=== PATIENT | female | born 1990 | race Hispanic/Latino ===

== ENCOUNTER 2017-12-04 14:05 | Observation (INO) | payer MEDICAID ==
[~2017-12-04] VITALS: Ht 162.6 cm; Wt 112.0 kg
[~2017-12-04 14:05] MED LIST: GLYB2.5 PO; IBUP-2070 PO; IRON-10 PO; PNV91TAB3 PO
[2017-12-04 15:20] VITALS: BP 96/65
== END 2017-12-04 15:50 | disposition home or self-care (01) ==
LOC: EDH 14:05 → LDH 14:24
PROVIDERS: ADMIT Obstetrics & Gynecology; ATTEND Obstetrics & Gynecology
DX: O42.92 Full-term premature rupture of membranes, unspecified as to length of time between rupture and onset of labor (principal); Z3A.38 38 weeks gestation of pregnancy
CPT/HCPCS: 99285; G0378

== ENCOUNTER 2017-12-07 19:50 | Inpatient (IN) | payer MEDICAID ==
[~2017-12-07] VITALS: Ht 162.6 cm; Wt 113.4 kg
[2017-12-07 20:34] LABS: APPEARANCE,URINE Cloudy (CLEAR); BILIRUBIN,URINE Negative (NEGATIVE); COLOR,URINE Yellow (YELLOW); GLUCOSE, URINE (UA) Negative (NEGATIVE); KETONES,URINE Negative (NEGATIVE); LEUKOCYTE ESTERASE ,URINE Moderate (NEGATIVE); NITRATE,URINE Negative (NEGATIVE); OCCULT BLOOD,URINE Negative (NEGATIVE); PH,URINE 6.5 (5.0-8.0); PROTEIN,URINE Negative (NEGATIVE)
[2017-12-07] MEDS: LACTATED RINGERS 1000ML 1,000 ML IV PRN (20:50)
[2017-12-07 21:08] LABS: HEMATOCRIT 32.9 % (36-48); MEAN CORPUSCULAR HEMOGLOBIN 27.3 pg (27.0-33.0); MEAN CORPUSCULAR HGB CONC 34.8 g/dL (32.0-36.0); MEAN CORPUSCULAR VOLUME 78.5 fL (79-99); NUCLEATED RED BLOOD CELLS 0.1 % (0.0-0.19); PLATELET COUNT (AUTO) 283 K/uL (130-400); RED BLOOD CELL COUNT(AUTO) 4.19 MIL/uL (4.00-5.50); RED CELL DISTRIBUTION WIDTH 18.5 % (11.0-15.5); WHITE BLOOD COUNT (AUTO) 13.8 K/uL (4.8-10.8)
[2017-12-07 21:19] LABS: WBC,URINE 26-50 /HPF (0-1)
[2017-12-07 21:20] LABS: BACTERIA,URINE Few /HPF (None Seen); SQUAMOUS EPITHELIAL CELL,UR Moderate /LPF (0-2)
[2017-12-07 21:22] LABS: MUCUS,URINE Rare LPF (None Seen)
[2017-12-08] MEDS: LACTATED RINGERS 1000ML 1,000 ML IV PRN (00:32)
[2017-12-08] MEDS ORDERED: OXYTOCIN 10 USP UNITS/ML 20 UNIT in LACTATED RINGERS 1000ML 1,000 ML IV SCH ×2 (03:00→06:30)
[2017-12-08] MEDS ORDERED: OXYTOCIN 10 USP UNITS/ML ONE ×2 (05:49→13:13)
[2017-12-08] MEDS ORDERED: LACTATED RINGERS 1000ML 1,000 ML IV ONE (05:49)
[2017-12-08] MEDS ORDERED: PROMETHAZINE HCL 25 MG/ML 1ML AMPULE IM ONE (08:39)
[2017-12-08] MEDS ORDERED: MEPERIDINE-PF 50 MG/ML SYG ONE (08:40)
[2017-12-08] MEDS ORDERED: MEPERIDINE-PF 50 MG/ML SYG IVP SCH (08:45)
[2017-12-08] MEDS ORDERED: PROMETHAZINE HCL 25 MG/ML 1ML AMPULE IM SCH ×2 (08:45→11:00)
[2017-12-08] MEDS ORDERED: MEPERIDINE-PF 50 MG/ML SYG IVP ONE (11:00)
[2017-12-08] MEDS ORDERED: IBUPROFEN 600 MG TABLET ONE (13:13)
[2017-12-08] MEDS ORDERED: BENZOCAINE/LANOLIN/ALOE VERA 60 ML AEROSOL TP PRN (13:30)
[2017-12-08] MEDS ORDERED: WITCH HAZEL 1 PAD TP PRN (13:30)
[2017-12-08] MEDS ORDERED: ACETAMINOPHEN 325 MG TAB PO PRN (13:30)
[2017-12-08] MEDS ORDERED: LANOLIN 30GM OINTMENT TP PRN (13:30)
[2017-12-08] MEDS ORDERED: MEASLES/MUMPS/RUBELLA VACCINE, LIVE 0.5 ML/VIAL SQ PRN (13:30)
[2017-12-08] MEDS ORDERED: DIPH,PERTUSS(ACELL),TET VAC/PF 0.5 ML VIAL IM PRN (13:30)
[2017-12-08] MEDS ORDERED: IBUPROFEN 600 MG TABLET PO PRN (13:30)
[2017-12-08 14:15] VITALS: BP 133/70
[2017-12-08] MEDS ORDERED: FERR-82 PO (14:56)
[2017-12-08 15:24] VITALS: BP 126/62
[2017-12-08] MEDS ORDERED: FLU VACC QS2017-18 36MOS UP/PF 60 MCG/0.5 ML ML IM ONE ×2 (15:45→17:08)
[2017-12-08 19:19] VITALS: BP 127/58
[2017-12-08] MEDS: DOCUSATE SODIUM 100 MG CAP PO SCH (20:52)
[2017-12-08 23:00] VITALS: BP 134/63
[2017-12-09 03:29] VITALS: BP 121/63
[2017-12-09 05:42] LABS: HEMATOCRIT 30.1 % (36-48); MEAN CORPUSCULAR HEMOGLOBIN 26.3 pg (27.0-33.0); MEAN CORPUSCULAR HGB CONC 33.1 g/dL (32.0-36.0); MEAN CORPUSCULAR VOLUME 79.3 fL (79-99); PLATELET COUNT (AUTO) 240 K/uL (130-400); RED BLOOD CELL COUNT(AUTO) 3.79 MIL/uL (4.00-5.50); RED CELL DISTRIBUTION WIDTH 18.7 % (11.0-15.5)
[2017-12-09 07:25] VITALS: BP 111/65
[2017-12-09 07:30] LABS: HEPATITIS Bs ANTIGEN SCREEN P Negative (Negative)
[2017-12-09] MEDS: DOCUSATE SODIUM 100 MG CAP PO SCH (08:30)
[2017-12-09 11:20] VITALS: BP 115/65
== END 2017-12-09 12:45 | disposition home or self-care (01) | DRG 560 ==
LOC: LDH 19:50 → WSH 12-08 14:15
PROVIDERS: ADMIT Obstetrics & Gynecology; ATTEND Obstetrics & Gynecology
PROC: 10E0XZZ Delivery of Products of Conception, External Approach (ICD-10-PCS; principal; 2017-12-08)
PROC: 3E0234Z Introduction of Serum, Toxoid and Vaccine into Muscle, Percutaneous Approach (ICD-10-PCS; 2017-12-08)
PROC: 3E0234Z Introduction of Serum, Toxoid and Vaccine into Muscle, Percutaneous Approach (ICD-10-PCS; 2017-12-08)
PROC: 3E0134Z Introduction of Serum, Toxoid and Vaccine into Subcutaneous Tissue, Percutaneous Approach (ICD-10-PCS; 2017-12-08)
PROC: 10907ZC Drainage of Amniotic Fluid, Therapeutic from Products of Conception, Via Natural or Artificial Opening (ICD-10-PCS; 2017-12-08)
DX: O24.429 Gestational diabetes mellitus in childbirth, unspecified control (principal); Z23 Encounter for immunization; Z37.0 Single live birth; Z3A.39 39 weeks gestation of pregnancy
CPT/HCPCS: 36415; 81001; 85027; 86592; 86850; 86900; 86901; 87340; 90715; A4351; A4606; J2175; J2550; J2590; J7120; Q2038

== ENCOUNTER 2017-12-18 18:15 | Observation (INO) | payer MEDICAID ==
[~2017-12-18] VITALS: Ht 162.6 cm; Wt 105.2 kg
[~2017-12-18 18:15] MED LIST changes: +FERR-82 PO
[2017-12-18] MEDS ORDERED: SODIUM CHLORIDE 0.9% 1000ML 1,000 ML IV ONE (19:33)
[2017-12-18] MEDS ORDERED: ONDANSETRON HCL 4 MG/2 ML VIAL ONE (19:33)
[2017-12-18] MEDS ORDERED: KETOROLAC TROMETHAMINE 30MG/ML ONE (19:33)
[2017-12-18 19:35] LABS: BASOPHILS % (AUTO) 0.5 % (0.0-5.0); EOSINOPHILS % (AUTO) 1.8 % (0.0-8.0); HEMATOCRIT 32.7 % (36-48); LYMPHOCYTES % (AUTO) 13.8 % (21.0-51.0); MEAN CORPUSCULAR VOLUME 78.7 fL (79-99); MONOCYTES % (AUTO) 4.4 % (3.0-13.0); NEUTROPHILS % (AUTO) 79.5 % (40.0-77.0); PLATELET COUNT (AUTO) 316 K/uL (130-400); RED BLOOD CELL COUNT(AUTO) 4.15 MIL/uL (4.00-5.50); RED CELL DISTRIBUTION WIDTH 17.5 % (11.0-15.5); WHITE BLOOD COUNT (AUTO) 16.8 K/uL (4.8-10.8)
[2017-12-18 19:45] LABS: CREATININE 0.7 mg/dL (0.5-1.5); POTASSIUM 3.6 mmol/L (3.5-5.1)
[2017-12-18 19:45] LABS: APPEARANCE,URINE Clear (CLEAR); BILIRUBIN,URINE Negative (NEGATIVE); COLOR,URINE Yellow (YELLOW); GLUCOSE, URINE (UA) Negative (NEGATIVE); KETONES,URINE Negative (NEGATIVE); LEUKOCYTE ESTERASE ,URINE Large (NEGATIVE); NITRATE,URINE Negative (NEGATIVE); OCCULT BLOOD,URINE Large (NEGATIVE); PH,URINE 7.5 (5.0-8.0); PROTEIN,URINE Negative (NEGATIVE)
[2017-12-18] MEDS ORDERED: ACETAMINOPHEN EXTRA STRENGTH 500 MG TABLET ONE (19:45)
[2017-12-18] MEDS ORDERED: CEFOXITIN SODIUM 2 GM VIAL ONE (19:50)
[2017-12-18 19:57] LABS: BACTERIA,URINE Rare /HPF (None Seen); RENAL EPITHELIAL CELLS,URINE Few /LPF (None Seen); SQUAMOUS EPITHELIAL CELL,UR 0-2 /LPF (0-2); TRANSITIONAL EPI CELLS,URINE Rare /LPF (None Seen)
[2017-12-18 23:15] VITALS: BP 118/66
[2017-12-18] MEDS ORDERED: ACETAMINOPHEN 325 MG TAB PO PRN (23:45)
[2017-12-18] MEDS ORDERED: ONDANSETRON HCL 4 MG/2 ML VIAL IVP PRN (23:45)
[2017-12-19 03:17] VITALS: BP 126/70
[2017-12-19] MEDS: LACTATED RINGERS 1000ML 1,000 ML IV SCH ×3 (04:50→13:24)
[2017-12-19 07:40] VITALS: BP 137/76
[2017-12-19] MEDS: DOXYCYCLINE HYCLATE 100 MG TABLET PO SCH ×2 (10:29→19:26)
[2017-12-19 11:31] VITALS: BP 134/70
[2017-12-19] MEDS ORDERED: DOXY100T2 PO (13:59)
[2017-12-19 15:50] VITALS: BP 132/71
[2017-12-19 19:30] VITALS: BP 127/58
== END 2017-12-19 20:20 | disposition home or self-care (01) ==
LOC: EDH 18:15 → EDHIP 18:16 → INTOOBSV 18:16 → WSH 23:15
PROVIDERS: ADMIT Obstetrics & Gynecology; ATTEND Obstetrics & Gynecology
DX: N60.42 Mammary duct ectasia of left breast (principal); N71.9 Inflammatory disease of uterus, unspecified
CPT/HCPCS: 36415; 76830; 80048; 81001; 85025; 87040 ×2; 87210; 87486; 87797; 87804 ×2; 96360; 96361; 99285; G0378 ×26; J0694; J1885; J2405; J7030; J7120 ×3

== ENCOUNTER 2018-09-05 10:06 | Emergency (ER) | payer MEDICAID ==
[~2018-09-05 10:06] MED LIST changes: +DOXY100T2 PO
[2018-09-05] MEDS ORDERED: LIDOCAINE HCL-MPF 1% 2ML VIAL ONE (11:16)
[2018-09-05] MEDS ORDERED: KETOROLAC TROMETHAMINE 60 MG/2 ML VIAL ONE (11:16)
[2018-09-05] MEDS ORDERED: CEFTRIAXONE SODIUM 1 GM ONE (11:16)
== END 2018-09-05 12:00 | disposition home or self-care (01) ==
LOC: EDH 10:06
DX: H66.93 Otitis media, unspecified, bilateral (principal)
CPT/HCPCS: 81025; 96372 ×2; 99284; J0696; J1885; J3490

== ENCOUNTER 2019-12-17 07:27 | Emergency (ER) | payer MEDICAID, OTHER ==
[2019-12-17 07:54] LABS: APPEARANCE,URINE Clear (CLEAR); BILIRUBIN,URINE Negative (NEGATIVE); COLOR,URINE Yellow (YELLOW); GLUCOSE, URINE (UA) Negative (NEGATIVE); KETONES,URINE Trace mg/dL (NEGATIVE); LEUKOCYTE ESTERASE ,URINE Negative (NEGATIVE); NITRATE,URINE Negative (NEGATIVE); OCCULT BLOOD,URINE Negative (NEGATIVE); PROTEIN,URINE Trace mg/dL (NEGATIVE)
[2019-12-17 07:57] LABS: HCG,QUAL RESULT NEGATIVE (NEGATIVE)
[2019-12-17 08:03] LABS: BACTERIA,URINE Few /HPF (None Seen); MUCUS,URINE Few LPF (None Seen); RBC,URINE None Seen /HPF (0-1); SQUAMOUS EPITHELIAL CELL,UR Few /HPF (0-2); WBC,URINE 0-1 /HPF (0-1)
[2019-12-17] MEDS ORDERED: PROCHLORPERAZINE EDISYLATE 10 MG/2 ML VIAL ONE (08:03)
[2019-12-17] MEDS ORDERED: SODIUM CHLORIDE 0.9% 1000ML 1,000 ML IV ONE (08:03)
[2019-12-17] MEDS ORDERED: DiphenhydrAMINE HCL 50 MG/ML VIAL ONE (08:03)
[2019-12-17 08:22] LABS: BASOPHILS % (AUTO) 0.3 % (0.0-5.0); EOSINOPHILS % (AUTO) 1.8 % (0.0-8.0); HEMATOCRIT 36.4 % (36-48); LYMPHOCYTES % (AUTO) 15.4 % (21.0-51.0); MEAN CORPUSCULAR HEMOGLOBIN 26.3 pg (27.0-33.0); MEAN CORPUSCULAR VOLUME 79.8 fL (79-99); MONOCYTES % (AUTO) 6.9 % (3.0-13.0); NEUTROPHILS % (AUTO) 75.1 % (40.0-77.0); PLATELET COUNT (AUTO) 285 K/uL (130-400); RED BLOOD CELL COUNT(AUTO) 4.56 MIL/uL (4.00-5.50); RED CELL DISTRIBUTION WIDTH 14.8 % (11.0-15.5); WHITE BLOOD COUNT (AUTO) 7.7 K/uL (4.8-10.8)
[2019-12-17 08:36] LABS: CREATININE 0.7 mg/dL (0.5-1.5); POTASSIUM 3.8 mmol/L (3.5-5.1)
[2019-12-17 08:41] LABS: ALBUMIN 3.2 g/dL (3.5-5.0); BILIRUBIN,TOTAL 0.4 mg/dL (0.2-1.0); TOTAL PROTEIN, SERUM 7.5 g/dL (6.0-8.3)
== END 2019-12-17 10:07 | disposition home or self-care (01) ==
LOC: EDH 07:27
DX: G43.909 Migraine, unspecified, not intractable, without status migrainosus (principal); R11.0 Nausea; Z72.0 Tobacco use
CPT/HCPCS: 36415; 70450; 80053; 81001; 81025; 85025; 96374; 96375; 99284; J0780; J1200; J7030

== ENCOUNTER 2021-03-23 21:56 | Emergency (ER) | payer OTHER ==
[~2021-03-23 21:56] MED LIST changes: -GLYB2.5 PO; +GLYB2.5T6 PO
[2021-03-23] MEDS ORDERED: KETOROLAC TROMETHAMINE 60 MG/2 ML VIAL ONE (22:18)
[2021-03-23] MEDS ORDERED: CYCLOBENZAPRINE HCL 10 MG TABLET ONE (22:18)
[2021-03-23] MEDS ORDERED: HYDROCODONE/ACETAMINOPHEN 10/325 MG TAB ONE (22:19)
== END 2021-03-23 23:07 | disposition home or self-care (01) ==
LOC: EDH 21:56
DX: G90.09 Other idiopathic peripheral autonomic neuropathy (principal); R03.0 Elevated blood-pressure reading, without diagnosis of hypertension
CPT/HCPCS: 96372; 99283; J1885

== ENCOUNTER 2021-09-19 14:16 | Emergency (ER) | payer SELFPAY ==
[~2021-09-19] VITALS: Ht 152.4 cm; Wt 127.0 kg
[2021-09-19] MEDS ORDERED: KETOROLAC 30MG VIAL (30MG/ML) IV ONE (14:30)
[2021-09-19] MEDS ORDERED: 0.9%NACL 1000ML 1,000 ML IV ONE (14:30)
[2021-09-19 15:11] LABS: BASOPHILS % (AUTO) 0.4 % (0.0-5.0); EOSINOPHILS % (AUTO) 2.3 % (0.0-8.0); HEMATOCRIT 38.1 % (36-48); LYMPHOCYTES % (AUTO) 24.5 % (21.0-51.0); MEAN CORPUSCULAR HEMOGLOBIN 27.1 pg (27.0-33.0); MEAN CORPUSCULAR HGB CONC 32.3 g/dL (32.0-36.0); MEAN CORPUSCULAR VOLUME 83.9 fL (79-99); NEUTROPHILS % (AUTO) 67.5 % (40.0-77.0); PLATELET COUNT (AUTO) 291 K/uL (130-400); RED BLOOD CELL COUNT(AUTO) 4.54 MIL/uL (4.00-5.50); RED CELL DISTRIBUTION WIDTH 13.3 % (11.0-15.5)
[2021-09-19 15:12] LABS: APPEARANCE,URINE CLEAR (CLEAR); BILIRUBIN,URINE NEGATIVE (NEGATIVE); COLOR,URINE YELLOW (YELLOW); GLUCOSE, URINE (UA) NEGATIVE (NEGATIVE); KETONES,URINE NEGATIVE (NEGATIVE); LEUKOCYTE ESTERASE ,URINE NEGATIVE (NEGATIVE); NITRATE,URINE NEGATIVE (NEGATIVE); OCCULT BLOOD,URINE MODERATE (NEGATIVE); PROTEIN,URINE NEGATIVE (NEGATIVE); UROBILINOGEN,URINE 0.2 mg/dL (0.2-1.0)
[2021-09-19 15:17] LABS: HCG,QUAL RESULT NEGATIVE (NEGATIVE)
[2021-09-19 15:20] LABS: CREATININE 0.7 mg/dL (0.5-1.5); POTASSIUM 3.9 mmol/L (3.5-5.1)
[2021-09-19 15:25] LABS: ALBUMIN 3.4 g/dL (3.5-5.0); BILIRUBIN,TOTAL 0.2 mg/dL (0.2-1.0); CRP QUANTITATIVE 36.7 mg/L (0.00-9.0); TOTAL PROTEIN, SERUM 7.5 g/dL (6.0-8.3)
[2021-09-19 15:28] LABS: BACTERIA,URINE Few /HPF (None Seen); MUCUS,URINE Rare LPF (None Seen); SQUAMOUS EPITHELIAL CELL,UR Few /HPF (0-2)
[2021-09-19] MEDS ORDERED: KETOROLAC 30MG VIAL (30MG/ML) ONE (17:00)
[2021-09-19 17:09] VITALS: BP 141/74
[2021-09-19] MEDS ORDERED: PHEN-847 PO (17:50)
[2021-09-19] MEDS ORDERED: CEPH500B PO (17:50)
[2021-09-19] MEDS ORDERED: CEFTRIAXONE 1G VIAL ONE (17:54)
[2021-09-19] MEDS ORDERED: CEFTRIAXONE 1G VIAL IVP ONE (18:00)
== END 2021-09-19 18:05 | disposition home or self-care (01) ==
LOC: EDH 14:16
DX: N39.0 Urinary tract infection, site not specified (principal); E66.9 Obesity, unspecified; Z68.43 Body mass index [BMI] 50.0-59.9, adult; Z79.899 Other long term (current) drug therapy
CPT/HCPCS: 36415; 74176; 80053; 81001; 81025; 85025; 86140; 96361; 96374; 96375; 99284; J0696; J1885; J7030

== ENCOUNTER 2022-09-13 11:30 | Emergency (ER) | payer OTHER ==
[~2022-09-13] VITALS: Ht 162.6 cm; Wt 127.0 kg
[~2022-09-13 11:30] MED LIST changes: +CEPH500B PO; +PHEN-847 PO
[2022-09-13 11:35] VITALS: BP 155/90
[2022-09-13] MEDS ORDERED: CYCLOBENZAPRINE HCL 10 MG TABLET PO ONE (13:00)
[2022-09-13] MEDS ORDERED: ACETAMINOPHEN 500 MG TABLET PO ONE (13:00)
[2022-09-13 13:57] LABS: BASOPHILS % (AUTO) 0.4 % (0.0-5.0); EOSINOPHILS % (AUTO) 2.6 % (0.0-8.0); HEMATOCRIT 38.1 % (36-48); LYMPHOCYTES % (AUTO) 25.9 % (21.0-51.0); MEAN CORPUSCULAR HEMOGLOBIN 27.2 pg (27.0-33.0); MEAN CORPUSCULAR HGB CONC 32.8 g/dL (32.0-36.0); MEAN CORPUSCULAR VOLUME 82.8 fL (79-99); MONOCYTES % (AUTO) 5.3 % (3.0-13.0); NEUTROPHILS % (AUTO) 65.4 % (40.0-77.0); PLATELET COUNT (AUTO) 304 K/uL (130-400); RED CELL DISTRIBUTION WIDTH 13.2 % (11.0-15.5); WHITE BLOOD COUNT (AUTO) 10.2 K/uL (4.8-10.8)
[2022-09-13 14:00] LABS: CREATININE 0.6 mg/dL (0.5-1.5); POTASSIUM 4.4 mmol/L (3.5-5.1)
[2022-09-13 14:05] LABS: ALBUMIN 3.3 g/dL (3.5-5.0); TOTAL PROTEIN, SERUM 7.6 g/dL (6.0-8.3)
[2022-09-13] MEDS ORDERED: NAPR-1180 PO (14:13)
== END 2022-09-13 14:52 | disposition left against medical advice (07) ==
LOC: EDH 11:30
DX: R07.89 Other chest pain (principal); R03.0 Elevated blood-pressure reading, without diagnosis of hypertension; Z79.1 Long term (current) use of non-steroidal anti-inflammatories (NSAID)
CPT/HCPCS: 36415; 71045; 80053; 84484; 85025; 93005

== ENCOUNTER 2022-10-11 16:12 | Emergency (ER) | payer OTHER ==
[~2022-10-11] VITALS: Ht 162.6 cm; Wt 127.0 kg
[~2022-10-11 16:12] MED LIST changes: +NAPR-1180 PO
[2022-10-11 17:00] VITALS: BP 147/53
[2022-10-11] MEDS ORDERED: IBUP-2070 PO (19:18)
[2022-10-11] MEDS ORDERED: CYCL10TA16 PO (19:18)
[2022-10-11] MEDS ORDERED: CYCLOBENZAPRINE HCL 10 MG TABLET PO ONE (19:30)
[2022-10-11] MEDS ORDERED: KETOROLAC 30MG VIAL (30MG/ML) IM ONE (19:30)
== END 2022-10-11 19:42 | disposition home or self-care (01) ==
LOC: EDH 16:12
DX: S39.012A Strain of muscle, fascia and tendon of lower back, initial encounter (principal); Z79.1 Long term (current) use of non-steroidal anti-inflammatories (NSAID); X58.XXXA Exposure to other specified factors, initial encounter; Y93.89 Activity, other specified; Y92.89 Other specified places as the place of occurrence of the external cause; Y99.8 Other external cause status
CPT/HCPCS: 99283; 96372; J1885

== ENCOUNTER 2022-10-16 12:05 | Emergency (ER) | payer OTHER ==
[~2022-10-16] VITALS: Ht 162.6 cm; Wt 127.0 kg
[~2022-10-16 12:05] MED LIST changes: +CYCL10TA16 PO
[2022-10-16] MEDS ORDERED: KETOROLAC 30MG VIAL (30MG/ML) IM ONE (15:30)
[2022-10-16] MEDS ORDERED: ORPHENADRINE CITRATE 30 MG/ML ML IM ONE (15:30)
[2022-10-16] MEDS ORDERED: DEXAMETHASONE 4 MG TAB PO SCH (15:30)
[2022-10-16] MEDS ORDERED: GABAPENTIN 300 MG CAPSULE PO SCH (15:30)
[2022-10-16 17:14] VITALS: BP 137/98
[2022-10-16] MEDS ORDERED: METH-662 PO (17:27)
[2022-10-16] MEDS ORDERED: DICL75TA5 PO (17:27)
[2022-10-16] MEDS ORDERED: GABA600T10 PO (17:27)
== END 2022-10-16 18:03 | disposition home or self-care (01) ==
LOC: EDH 12:05
DX: M54.42 Lumbago with sciatica, left side (principal); Z79.899 Other long term (current) drug therapy; Z98.890 Other specified postprocedural states
CPT/HCPCS: 99284; 81025; 72110; 96372 ×2; J1885; J8540; J2360

== ENCOUNTER 2025-01-15 16:14 | Emergency (ER) | payer OTHER, BC ==
[~2025-01-15] VITALS: Ht 162.6 cm; Wt 108.9 kg
[~2025-01-15 16:14] MED LIST changes: +DICL75TA5 PO; +GABA-1405 PO; +METH-662 PO
[2025-01-15 16:31] VITALS: BP 133/89; PULSE 96; RESP 16; TEMP 98.9; O2SAT 98
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
[2025-01-15] MEDS: CYCLOBENZAPRINE HCL 10 MG TABLET PO SCH (17:54)
[2025-01-15] MEDS: acetaMINOPHEN 500 MG TABLET PO SCH (17:54)
[2025-01-15] MEDS ORDERED: CYCL10TA16 PO (19:02)
[2025-01-15] MEDS ORDERED: IBUP-2070 PO (19:02)
--- NOTE | 2025-01-16 09:11 | HMCIMG ---
LUMBAR SPINE 2-3VWS HISTORY: Neck pain COMPARISON: None FINDINGS: 3 images of lumbar spine were obtained. There is straightening of normal lordotic curvature which may be related to muscle spasm or positioning. No loss of vertebral height is seen. No fracture or dislocation is seen. IMPRESSION: 1. No fracture is seen.
== END 2025-01-15 19:12 | disposition home or self-care (01) ==
LOC: EDH 16:14
DX: M54.50 Low back pain, unspecified (principal); I10 Essential (primary) hypertension; E11.9 Type 2 diabetes mellitus without complications; Z79.899 Other long term (current) drug therapy
CPT/HCPCS: 72100; 81025; 99284